=== PATIENT | male | born 2000 | race Caucasian/White ===

== ENCOUNTER 2024-10-08 11:01 | Emergency (ER) | payer SELFPAY ==
[~2024-10-08] VITALS: Ht 180.3 cm; Wt 65.8 kg
[2024-10-08 11:07] VITALS: PULSE 63; RESP 18; TEMP 98.1; O2SAT 100
[2024-10-08] MEDS ORDERED: AMOX TR-K CLV1 EAC2 PO (12:07)
[2024-10-08] MEDS ORDERED: ULTRAM 50MG50 MG PO (12:07)
== END 2024-10-08 12:49 | disposition home or self-care (01) ==
LOC: ER 11:54
DX: K08.89 Other specified disorders of teeth and supporting structures (principal); F17.210 Nicotine dependence, cigarettes, uncomplicated
CPT/HCPCS: 99282

== ENCOUNTER 2025-02-21 13:44 | Emergency (ER) | payer SELFPAY ==
[~2025-02-21 13:44] MED LIST: AMOX TR-K CLV1 EAC2 PO; ULTRAM 50MG50 MG PO
== END 2025-02-21 13:47 | disposition short-term general hospital (02) ==
LOC: ER 13:44
DX: R69 Illness, unspecified (principal)

== ENCOUNTER 2025-03-03 16:19 | Emergency (ER) | payer SELFPAY ==
[~2025-03-03] VITALS: Ht 180.3 cm; Wt 68.0 kg
[2025-03-03 17:05] VITALS: PULSE 75; RESP 15; TEMP 98.5; O2SAT 100
[2025-03-03] MEDS ORDERED: KETOROLAC TROME10 MG PO (18:31)
[2025-03-03] MEDS ORDERED: AUGMENTIN 500-1 EACH PO (18:32)
== END 2025-03-03 18:40 | disposition home or self-care (01) ==
LOC: ER 17:56
DX: K08.89 Other specified disorders of teeth and supporting structures (principal); B35.3 Tinea pedis; Z76.5 Malingerer [conscious simulation]
CPT/HCPCS: 99282